=== PATIENT | female | born 1955 | race Caucasian/White ===

== ENCOUNTER → 2018-03-23 10:21 | Outpatient (CLI) | payer OTHER, SELFPAY ==
--- NOTE | 2018-03-23 10:26 | MM_ITS ---
MM Dig screening mamm BI w/CAD CAD Screening COMPARISON: Analog mammograms 04/17/2008 and additional views left breast 04/22/2008 INDICATION: There is no personal or family history of breast cancer TECHNIQUE: Standard CC and MLO images were obtained. R2 CAD reviewed. FINDINGS: Moderate scattered fibro glandular densities are seen throughout both breasts. There is an asymmetric density upper inner quadrant left breast with slightly irregular borders. Recommend the patient return for spot compression views in MLO and CC injection and ultrasound will be necessary as well. There are no suspicious microcalcifications. IMPRESSION: Fibrofatty parenchyma with asymmetric density left breast BI-RADS Category: 0 Need Additional Imaging Evaluation RECOMMENDED FOLLOW-UP: 1YR - 1 YEAR FOLLOW-UP (A letter has been sent to the patient regarding results of the study.)
== END ==
PROVIDERS: PCP Internal Medicine; Visit Provider Internal Medicine
DX: Z12.31 Encounter for screening mammogram for malignant neoplasm of breast (principal)
CPT/HCPCS: 77067

== ENCOUNTER → 2018-04-06 14:20 | Outpatient (CLI) | payer OTHER, SELFPAY ==
--- NOTE | 2018-04-06 14:25 | MM_ITS ---
MM Dig mamm DX unilat LT CAD, US breast LT complete INDICATION: Follow-up abnormal screening exam ORDERING PHYSICIAN: Sujey Dinh PATIENT AGE: 63 years COMPARISON: 03/23/2018 TECHNIQUE: Problem-solving views performed of the left breast along with left breast ultrasound FINDINGS: There is persistent 6 mm density within the deep medial aspect of the left breast at the 9-10 o'clock region. The margins appear somewhat irregular and there is a small calcification noted associated with this lesion. This appears more well-circumscribed on the rolled views. Left breast ultrasound: At 2:00 there is a 14 x 8 mm somewhat suspicious appearing hypoechoic nodule with some posterior shadowing. This is not readily identified by mammography. Biopsy is recommended. In addition, there is a 7 mm hypoechoic nodule within the 8:00 region of the left breast some posterior shadowing. This has an irregular appearance and may correspond to the mammographic abnormality in the medial aspect of the left breast. Biopsy of this nodule is also recommended. IMPRESSION: There are 2 suspicious nodules within the left breast one at 2:00 and one at 8:00 both visualized by ultrasound. Recommend ultrasound-guided mammotome biopsy of both of these lesions BI-RADS Category: 4 Suspicious Abnormality-Biopsy Considered RECOMMENDED FOLLOW-UP: BIO - BIOPSY RECOMMENDED (A letter has been sent to the patient regarding results of the study.)
== END ==
PROVIDERS: PCP Internal Medicine; Visit Provider Internal Medicine
DX: R92.8 Other abnormal and inconclusive findings on diagnostic imaging of breast (principal)
CPT/HCPCS: 76641; 77065